=== PATIENT | female | born 2000 | race Two or more races ===

== ENCOUNTER → 2024-10-30 | Outpatient (CLI) | payer BC, SELFPAY ==
[2024-10-30 12:24] LABS: Basophils % (Auto) 0 % (0-2.5); Eosinophils # (Auto) 0.1 Thou/mm3 (0.0-0.5); Eosinophils % (Auto) 1 % (0-10); Hematocrit 43.1 % (36.0-46.0); Immature Granulocytes % (Auto) 0 % (0-0); Immature Granulocytes Auto 0.02 Thou/mm3 (0.00-0.00); Lymphocytes # (Auto) 1.8 Thou/mm3 (1.0-4.8); Lymphocytes % (Auto) 24 % (10-50); Mean Corpuscular HGB Conc 34.8 g/dl (31.0-37.0); Mean Corpuscular Hemoglobin 30.8 pg (25.0-35.0); Mean Corpuscular Volume 89 fL (80-100); Monocytes # (Auto) 0.6 Thou/mm3 (0.0-0.8); Monocytes % (Auto) 8 % (0-12); Neutrophils # (Auto) 5.1 Thou/mm3 (1.8-7.7); Neutrophils % (Auto) 66 % (37-80); Nucleated Red Blood Cell % 0 /100 WBC (0); Platelet Count 306 Thou/mm3 (140-440); RDW Standard Deviation 40.3 fL (36.4-46.3); Red Blood Count 4.87 Miln/mm3 (4.00-5.20); White Blood Count 7.6 Thou/mm3 (3.6-11.0)
[2024-10-30 12:45] LABS: Glucose Estimated Average 100 mg/dL (80-131); Hemoglobin A1C 5.1 % Hgb (4.8-6.0)
[2024-10-30 12:53] LABS: Alanine Aminotransferase 30 U/L (10-49); Albumin, Serum 4.8 gm/dL (3.5-5.0); Albumin/Globulin Ratio 1.8 (1.2-2.2); Alkaline Phosphatase 88 U/L (46-116); Anion Gap 8 (7-16); BUN/Creatinine Ratio 25 Ratio (12-20); Bilirubin,Total 0.7 mg/dL (0.3-1.2); Blood Urea Nitrogen 15 mg/dL (9-23); Calcium 9.5 mg/dL (8.3-10.6); Calcium (Corrected) 9.5 mg/dL (8.5-10.1); Carbon Dioxide 24.5 mMol/L (20.0-31.0); Cardiac Risk Estimate 4.5 RATIO (3.7-5.6); Chloride 106 mMol/L (98-107); Cholesterol 183 mg/dL (132-200); Creatinine (Component) 0.6 mg/dL (0.6-1.3); Globulin 2.6 gm/dL (2.3-3.5); Glucose 86 mg/dL (74-106); HDL Cholesterol 41 mg/dL (40-60); LDL Cholesterol,Calculated 102 mg/dL (0-130); Osmolality,Calculated 275 (275-295); Potassium 3.8 mMol/L (3.4-5.1); Sodium 138 mMol/L (136-145); Total Protein 7.4 gm/dL (5.7-8.2); Triglycerides 201 mg/dL (30-150); eGFR > 60 See Note
[2024-10-30 13:05] LABS: Aspartate Amino Transferase 16 U/L (0-34)
== END | disposition home or self-care (01) ==
PROVIDERS: PCP Student in an Organized Health Care Education/Training Program; Referring Provider Student in an Organized Health Care Education/Training Program; Visit Provider Student in an Organized Health Care Education/Training Program
DX: F33.9 Major depressive disorder, recurrent, unspecified (principal); J30.9 Allergic rhinitis, unspecified; Z83.49 Family history of other endocrine, nutritional and metabolic diseases
CPT/HCPCS: 36415; 80053; 80061; 83036; 84443; 85025

== ENCOUNTER → 2024-11-03 | Outpatient (CLI) | payer BC, SELFPAY ==
[2024-11-03 18:37] LABS: Free T4 (Free Thyroxine) 0.95 ng/dL (0.89-1.76)
[2024-11-10 06:55] LABS: Thyroid Peroxidase Antibodies* 199 IU/mL (<9)
== END | disposition home or self-care (01) ==
LOC: COPL 11:36
PROVIDERS: PCP Family Medicine; Referring Provider Student in an Organized Health Care Education/Training Program; Visit Provider Student in an Organized Health Care Education/Training Program
DX: R94.6 Abnormal results of thyroid function studies (principal)
CPT/HCPCS: 36415; 84439; 86376

== ENCOUNTER → 2025-03-30 | Outpatient (CLI) | payer BC, SELFPAY ==
[2025-03-30 13:59] LABS: Free T4 (Free Thyroxine) 0.63 ng/dL (0.89-1.76); Thyroid Stimulating Hormone > 150.00 uIU/mL (0.55-4.78)
[2025-04-03 06:58] LABS: Thyroid Peroxidase Antibodies* 362 IU/mL (<9)
== END | disposition home or self-care (01) ==
LOC: COPL 12:26
PROVIDERS: PCP Student in an Organized Health Care Education/Training Program; Referring Provider Student in an Organized Health Care Education/Training Program; Visit Provider Student in an Organized Health Care Education/Training Program
DX: E03.9 Hypothyroidism, unspecified (principal)
CPT/HCPCS: 36415; 84439; 84443; 86376

== ENCOUNTER → 2025-04-01 | Outpatient (CLI) | payer BC, SELFPAY ==
[2025-04-01 10:30] LABS: Basophils % (Auto) 0 % (0-2.5); Eosinophils # (Auto) 0.1 Thou/mm3 (0.0-0.5); Eosinophils % (Auto) 1 % (0-10); Hematocrit 36.7 % (36.0-46.0); Hemoglobin 13.1 g/dL (12.0-16.0); Immature Granulocytes % (Auto) 0 % (0-0); Immature Granulocytes Auto 0.02 Thou/mm3 (0.00-0.00); Lymphocytes # (Auto) 0.9 Thou/mm3 (1.0-4.8); Lymphocytes % (Auto) 12 % (10-50); Mean Corpuscular HGB Conc 35.7 g/dl (31.0-37.0); Mean Corpuscular Hemoglobin 31.5 pg (25.0-35.0); Mean Corpuscular Volume 88 fL (80-100); Monocytes # (Auto) 0.6 Thou/mm3 (0.0-0.8); Monocytes % (Auto) 8 % (0-12); Neutrophils # (Auto) 6.3 Thou/mm3 (1.8-7.7); Neutrophils % (Auto) 79 % (37-80); Nucleated Red Blood Cell % 0 /100 WBC (0); Platelet Count 243 Thou/mm3 (140-440); RDW Standard Deviation 42.5 fL (36.4-46.3); Red Blood Count 4.16 Miln/mm3 (4.00-5.20)
[2025-04-01 11:02] LABS: Hepatitis B Surface Antigen Non Reactive (Non React); Rubella, IgG Antibody Reactive (Immune)
[2025-04-01 11:06] LABS: Beta HCG,Quantitative 1921 mIU/mL (<5.0)
[2025-04-01 11:58] LABS: HIV (1&2) Antibody Rapid Non-Reactive
== END | disposition home or self-care (01) ==
LOC: COPL 09:26
PROVIDERS: PCP Family Medicine; Referring Provider Student in an Organized Health Care Education/Training Program; Visit Provider Student in an Organized Health Care Education/Training Program
DX: E03.9 Hypothyroidism, unspecified (principal); Z32.01 Encounter for pregnancy test, result positive
CPT/HCPCS: 36415; 84702; 85025; 86703; 86762; 86850; 86900; 86901; 87340

== ENCOUNTER → 2025-04-06 | Outpatient (CLI) | payer BC, SELFPAY ==
[2025-04-06 11:40] LABS: Free T4 (Free Thyroxine) 1.77 ng/dL (0.89-1.76); Thyroid Stimulating Hormone 13.49 uIU/mL (0.55-4.78)
[2025-04-10 06:09] LABS: T3,Total* 117 ng/dL (76-181)
== END | disposition home or self-care (01) ==
PROVIDERS: PCP Student in an Organized Health Care Education/Training Program; Referring Provider Student in an Organized Health Care Education/Training Program; Visit Provider Student in an Organized Health Care Education/Training Program
DX: E03.9 Hypothyroidism, unspecified (principal)
CPT/HCPCS: 36415; 84439; 84443; 84480

== ENCOUNTER → 2025-04-22 | Outpatient (CLI) | payer BC, SELFPAY ==
[2025-04-22 10:56] LABS: Free T4 (Free Thyroxine) 1.60 ng/dL (0.89-1.76); Thyroid Stimulating Hormone 2.69 uIU/mL (0.55-4.78)
[2025-04-28 06:41] LABS: T3,Total* 96 ng/dL (76-181)
== END | disposition home or self-care (01) ==
LOC: COPL 09:31
PROVIDERS: PCP Family Medicine; Referring Provider Student in an Organized Health Care Education/Training Program; Visit Provider Student in an Organized Health Care Education/Training Program
DX: E03.9 Hypothyroidism, unspecified (principal)
CPT/HCPCS: 36415; 84439; 84443; 84480

== ENCOUNTER 2025-04-23 15:11 | Outpatient (AMB) | payer BC, SELFPAY ==
[2025-04-23 15:36] VITALS: BP 129/81; PULSE 84; RESP 17; TEMP 36.9; O2SAT 98; BMI 44.6
--- NOTE | 2025-04-23 15:36 | AMB.OBINITIA ---
Vital Signs 04/23/25 15:36 Height 1.63 m Height Method Measured Weight 118.047 kg Weight Measurement Method Standing Scale BMI 44.6 BP 129/81 Blood Pressure Source Automatic Cuff Blood Pressure Location Right Upper Arm Position Standing Respiration 17 Pulse 84 Pulse Source Monitor Temp 98.4 F Temp Source Temporal Artery Scan Pulse Oximetry (%) 98 Oxygen Delivery Method Room Air Allergies/Home Meds Allergies & Medications Allergies Penicillins Allergy (Verified 04/23/25 15:37) Medication Reconciliation levonorgestrel-ethinyl estradiol 0.1 mg-20 mcg tablet (Sronyx) 1 tab PO QDAY 03/10/19 [History Confirmed 04/23/25] mv-mn no.97-folic 180 mcg-dha 25 mg-herb no.293 25 mg chewable tablet (Alive Daily Support ) tab PO 04/23/25 [History Confirmed 04/23/25] Intake Visit Data Collection New Patient or Established: New Patient not seen in past 3 years at [facility] (considered New) Reason for Visit:: ZAIRE Consent obtained for Telemed Visit: No Seen by Clinical Staff ONLY (RN/MA): No Carbonator Required: No Do You Feel Safe at Home: Yes Authorities Contacted: N/A PCP or OBGYN visit in last 3 months: No Hx Now: Yes Are you currently on any form of Control: No Last menstrual period: 02/25/25 Pain Present Currently: No Pain Scale Used: Neves-Littlejohn/Numerical Pain scale:: 0 Smoking Status Smoking Status: Never smoker Questionnaires Covid-19 Vaccine Questionnaire Has patient been vacinated for Covid-19 Have you been vacinated for Covid-19: Yes PHQ-9 PHQ-2 Over the last 2 weeks, how often have you been bothered by any of the following problems? 1. Little interest or pleasure in doing things: several days 2. Feeling down, depressed, or hopeless: several days Total score: 2 PHQ-9 3. Trouble falling or staying asleep, or sleeping too much: Several days 4. Feeling tired or having little energy: Several days 5. Poor appetite or overeating: Several days 6. Feeling bad about yourself - or that you are a failure or have let yourself or your family down: Several days 7. Trouble concentrating on things, such as reading the newspaper or watching television: Several days 8. Moving or speaking so slowly that other people could have noticed? - Or the opposite - being so fidgety or restless that you have been moving around a lot more than usual: several days 9. Thoughts that you would be better off or of hurting yourself in some way: Several days Total score: 9.0 If you checked off any problems, how difficult have these problems made it for you to do your work, take care of things at home, or get along with other people?: somewhat difficult Source: Developed by Drs. Gabe Pastor, Aliza Medeiros, Ozzie Noguera and colleagues, with an educational omayra from [employer]. Depression screen completed yes Social History Living Situation History Marital Status: Lives With: Family Housing: House Tobacco History Smoking Status: Never smoker Domestic Abuse History Do You Feel Safe at Home: Yes History of Present Illness HPI Narrative Patient is a 23-year-old [id number] at 8 weeks and 1 day gestation by LMP, presenting for her first visit. Her LMP was on February 25, with an estimated due date of December 02, 2025. This is her first . 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 Her thyroid-stimulating hormone (TSH) levels have been improving, with a significant decrease from an initial level of around 150. Patient reports no other health issues besides her thyroid condition. Patient has not experienced any notable symptoms and denies nausea. She has had no previous ultrasounds or scans related to this , with only a positive test performed at her primary care office. Patient recently acquired an galley cook for her thyroid management but has not yet had an appointment, with the first available slot being in June in [place]. 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 Past Medical History: No Hx Renal Disease, No Hx Diabetes Mellitus Type 1 and No Hx Diabetes Mellitus Type 2 OB Initial Visit Menstrual History Menstrual reliability: definite Flow: heavy Menstrual regularity: irregular Monthly: No Age at menarche: 9 On control pills at conception: No Date of positive home test: 03/28/25 OB History : 1 Para: 0 Hx # Pregnancies: 0 Hx Total # of Abortions (Spontaneous & Elective): 0 # of Living Children: 0 Infection History & Risk Evaluation History of STDs: none HIV risk evaluation: low risk Hepatitis B risk evaluation: low risk Patient or partner has history of Genital Herpes: No Genetic Screening & History Genetic Screening/Teratology Counseling - Includes patient, baby's father, or anyone in either family with: 1. Patient's age 35 years or older as of estimated date of delivery: No 2. Thalassemia (Kinyarwanda, Venezuelan, Mediterranean, or Background); MCV less than 80: No 3. Neural Tube Defect (Meningomyelocele, Spina Bifida, or Anencephaly): No 4. Congenital Heart Defect: No 5. Down Syndrome: No 6. Ramone-Sachs (Ashkenazi Mandaen, Cajun, [place]): No 7. Avtar Disease (Ashkenazi Mandaen): No 8. Familial Dysautonomia (Ashkenazi Mandaen): No 9. Sickle Cell Disease or Trait (): No 10. Hemophilia or other blood disorders: No 11. Muscular Dystrophy: No 13. [place]'s Chorea: No 14. Mental Retardation/Autism: No 15. Other inherited genetic or chromosomal disorder: No 16. Maternal Metabolic Disorder (EG,TYPE 1 Diabetes, PKU): No 17. Patient or baby's father had a child with defects not listed above: No 18. Recurrent loss or a stillbirth: No 19. Medications (including supplements, vitamins, herbs or otc drugs)/illicit/recreational drugs/alcohol since last menstrual period: No 20. Any other: No Infection History 1. Live with someone with TB or exposed to TB: No 2. Rash or viral illness since last menstrual period: No 3. Hepatitis B,C: No Other (see comments) Source: [employer] Exam General General Appearance: alert, in no apparent distress and healthy appearing Head Head exam: atraumatic Neck Neck exam: Present normal inspection and trachea midline Chest Chest inspection: Present normal inspection and symmetric chest wall rise External exam: Present normal external exam; Absent tenderness Neuro Neurological exam: Present oriented X3 Psych Psychiatric exam: Present normal affect and normal mood Office Procedures OB Clinic LOC & Office Proc's Nursing/Assessment Patient Status: Established Patient OB Clinic Nursing Assessment: Medication Reconciliation, Update PMH in EMR and Vital Signs OB Clinic Coordination of Care: Complex Care and Chronic Disease 1-5, 4+ Authorizations needed, Lab and Imaging orders and Staff clarify orders Special Needs: Heart tones Established Patient Charge Established Patient Point Assignment: 135 Established Patient Point Charge: EP Level 4 (120-155) Assessment & Plan Diagnosis / Problem List (1) of unknown anatomic location: Status: Acute (2) Uterine size date discrepancy: Status: Acute Plan Early : - Last menstrual period on February 25, calculates to 8 weeks and 1 day gestation. - Estimated due date of December 02 next year. - First . - Initial bedside ultrasound inconclusive, unable to clearly visualize fetus. - Ordered stat formal ultrasound with radiology to confirm dating and viability. - lab tests to be ordered after ultrasound confirmation. - Genetic screening to be done after 10 weeks gestation. - Follow-up appointment scheduled for early next week to review ultrasound and lab results. Stephany's Thyroiditis: - Patient has history of Stephany's thyroiditis. - Currently taking levothyroxine 200 mg daily. - Recent thyroid function tests show improvement with TSH levels decreasing from initial value of approximately 150 to more normal range. - Continue current levothyroxine dose of 200 mg daily. - Repeat thyroid function tests. - Patient has appointment with new galley cook scheduled for
== END 2025-04-23 15:53 | disposition home or self-care (01) ==
PROVIDERS: PCP Student in an Organized Health Care Education/Training Program; Referring Provider Student in an Organized Health Care Education/Training Program; Supervising Provider Obstetrics & Gynecology; Visit Provider Obstetrics & Gynecology
DX: O36.80X0 Pregnancy with inconclusive fetal viability, not applicable or unspecified (principal); O26.841 Uterine size-date discrepancy, first trimester; Z3A.08 8 weeks gestation of pregnancy; O99.281 Endocrine, nutritional and metabolic diseases complicating pregnancy, first trimester; E06.3 Autoimmune thyroiditis; Z79.890 Hormone replacement therapy; Z88.0 Allergy status to penicillin
CPT/HCPCS: 99214; G0463

== ENCOUNTER → 2025-04-23 | Outpatient (CLI) | payer BC, SELFPAY ==
--- NOTE | 2025-04-23 16:10 | XR_ITS ---
Examination: Complete OB ultrasound, less than 14 weeks, transabdominal Date and time of exam: April 23, 2025, 1617 hours INDICATIONS: Unknown location Technique: Obstetrical ultrasound images less than 14 weeks performed via transabdominal imaging Findings: A normal shaped single intrauterine gestation is present in the uterus. CRL 1.1 cm corresponds to 7 weeks 1 day gestational age Cardiac motion 164 BPM Ultrasonographic survey of visible and placental structures unremarkable. Amniotic fluid volume appears appropriate for this estimated gestational age. Right ovary 4.3 cm arterial flow Left ovary 3.1 cm arterial flow. Impression: Viable intrauterine gestation 7 weeks 1 day
== END | disposition home or self-care (01) ==
LOC: CDIM 16:06
PROVIDERS: Referring Provider Obstetrics & Gynecology; Visit Provider Obstetrics & Gynecology
DX: O36.80X0 Pregnancy with inconclusive fetal viability, not applicable or unspecified (principal); Z3A.01 Less than 8 weeks gestation of pregnancy
CPT/HCPCS: 76801

== ENCOUNTER 2025-05-04 10:48 | Outpatient (AMB) | payer BC, SELFPAY ==
--- NOTE | 2025-05-04 10:59 | AMB.OBVISIT ---
Vital Signs 05/04/25 11:01 Height 1.63 m Height Method Stated Weight 116.12 kg Weight Measurement Method Standing Scale BMI 43.7 BP 123/82 Blood Pressure Source Automatic Cuff Blood Pressure Location Right Upper Arm Position Sitting Respiration 17 Pulse 75 Pulse Source Monitor Temp 98.7 F Temp Source Temporal Artery Scan Pulse Oximetry (%) 98 Oxygen Delivery Method Room Air Allergies/Home Meds Allergies & Medications Allergies Penicillins Allergy (Verified 05/04/25 11:01) Medication Reconciliation mv-mn no.97-folic 180 mcg-dha 25 mg-herb no.293 25 mg chewable tablet (Alive Daily Support ) tab PO 04/23/25 [History Confirmed 05/04/25] doxylamine 10 mg-pyridoxine (vit B6) 10 mg tablet,delayed release (Diclegis) 1 tab PO QDAY 30 days #30 tabs 05/04/25 [Rx] ondansetron 4 mg disintegrating tablet 4 mg PO Q6H PRN nausea and vomiting 30 days #120 tabs 05/04/25 [Rx] Intake Visit Data Collection New Patient or Established: Established Patient (seen at [facility] within 3 years) Reason for Visit:: OBC Seen by Clinical Staff ONLY (RN/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 1. Little interest or pleasure in doing things: several days 2. Feeling down, depressed, or hopeless: not at all Total score: 1 PHQ-9 3. Trouble falling or staying asleep, or sleeping too much: Not at all 4. Feeling tired or having little energy: Not at all 5. Poor appetite or overeating: Not at all 6. Feeling bad about yourself - or that you are a failure or have let yourself or your family down: Not at all 7. Trouble concentrating on things, such as reading the newspaper or watching television: Not at all 8. Moving or speaking so slowly that other people could have noticed? - Or the opposite - being so fidgety or restless that you have been moving around a lot more than usual: not at all 9. Thoughts that you would be better off or of hurting yourself in some way: Not at all Total score: 1 If you checked off any problems, how difficult have these problems made it for you to do your work, take care of things at home, or get along with other people?: not difficult at all Source: Developed by Drs. Gabe Pastor, Aliza Medeiros, Ozzie Noguera and colleagues, with an educational omayra from [employer]. 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 Denies BECK, VC, and epigastric pain. - Ursula is presenting for follow-up from infertility treatment and review of ultrasound results. - She had a positive test in early . - Current gestational age is estimated at 4-5 weeks based on last menstrual period of March 21. - Patient reports experiencing mild cramps, but does not find them concerning. - She denies any vaginal bleeding. - A blood test was performed on May 01 to check hormone levels. - Results showed hormone levels were not high enough to confirm a viable . - Current status is described as miscarriage versus that kind of situation in early . Care OB Visit Log OB Flowsheet Initial Weight: Not Recorded Date <del>?</del> EGA Weight BP Alb Glu CTX Pres Fundal ht FHR Mov Dilation Station Effacement Hx Notes Visit Note 05/04/25 <del>?</del> 8w 5d 116.12 kg 123/82 Sobia Thomas, , 8w5d. No CTX/LOF/VB. Reports nausea. Denies BECK/VC/epigastric pain. FHT 164. Sono 04/23: 7w1d, FHT 164. Plan: labs drawn, NIPT/genetic screening discussed, f/u next week for sono. DEBBI 12/09/25 by sono. DEBBI Calculator Estimated Delivery Date Method Current WG Current Estimate 12/09/25 Ultrasound #1 9w 2d Office Procedures OB Clinic LOC & Office Proc's Nursing/Assessment Patient Status: Established Patient OB Clinic Nursing Assessment: Medication Reconciliation, Update PMH in EMR and Vital Signs OB Clinic Coordination of Care: Complex Care and Chronic Disease 1-5, Consent,records obtained, informed consent, Education Simp Pt/Fam and Staff clarify orders Special Needs: Heart tones Established Patient Charge Established Patient Point Assignment: 115 Established Patient Point Charge: EP Level 3 (80-115) Assessment & Plan Diagnosis / Problem List (1) Uterine size date discrepancy: Status: Acute (2) Supervision of high risk , unspecified, first trimester: Status: Acute (3) Nausea/vomiting in : Status: Acute Plan Problem List - Early - Mild cramping Assessment Early with positive test, estimated 4-5 weeks gestation based on last menstrual period of March 21. HCG level of 991 on May 01, which is considered appropriate for gestational age. Patient reports mild cramping without vaginal bleeding. viability not yet confirmed due to early gestational age. Differential diagnosis includes viable intrauterine versus potential early miscarriage. Plan - Repeat HCG blood test on May 08 - Follow-up appointment scheduled for Sunday of the following week - Continue monitoring for progression of - No additional labs or ultrasound at this time; wait until HCG levels reach approximately 3000 This visit does not meet the criteria for the provided format request. The patient is in early (4-5 weeks gestation) and this is a follow-up visit for infertility treatment and review of ultrasound results. The format request is specifically for visits where gestational age is greater than 20 weeks, which does not apply in this case.
[2025-05-04 11:01] VITALS: BP 123/82; PULSE 75; RESP 17; TEMP 37.1; O2SAT 98; BMI 43.7
== END 2025-05-04 11:26 | disposition home or self-care (01) ==
LOC: HODSOBC 10:48
PROVIDERS: PCP Family Medicine; Referring Provider Family Medicine; Supervising Provider Obstetrics & Gynecology; Visit Provider Obstetrics & Gynecology
DX: O09.891 Supervision of other high risk pregnancies, first trimester (principal); O26.841 Uterine size-date discrepancy, first trimester; O21.9 Vomiting of pregnancy, unspecified; Z3A.08 8 weeks gestation of pregnancy; Z88.0 Allergy status to penicillin
CPT/HCPCS: 99213; G0463

== ENCOUNTER → 2025-05-05 | Outpatient (CLI) | payer BC, SELFPAY ==
[2025-05-05 11:25] LABS: Free T4 (Free Thyroxine) 1.63 ng/dL (0.89-1.76); Thyroid Stimulating Hormone 0.86 uIU/mL (0.55-4.78)
[2025-05-11 08:13] LABS: T3,Total* 148 ng/dL (76-181)
== END | disposition home or self-care (01) ==
LOC: COPL 09:58
PROVIDERS: PCP Student in an Organized Health Care Education/Training Program; Referring Provider Student in an Organized Health Care Education/Training Program; Visit Provider Student in an Organized Health Care Education/Training Program
DX: E03.9 Hypothyroidism, unspecified (principal)
CPT/HCPCS: 36415; 84439; 84443; 84480

== ENCOUNTER → 2025-05-06 | Outpatient (CLI) | payer BC, SELFPAY ==
[2025-05-06 10:54] LABS: Misc Send Out* See Sep Rpt
[2025-05-06 11:21] LABS: Collection Type, Urine Clean Catch
[2025-05-06 11:53] LABS: Thyroid Stimulating Hormone 0.68 uIU/mL (0.55-4.78)
[2025-05-06 12:09] LABS: Amorphous Crystals,Urine Present (Absent); Bacteria,Urine Rare; Bilirubin,Urine Negative (Negative); Blood,Urine Negative (Negative); Color,Urine Lt-Yellow (Lt Yel-Yel); Culture Indicated,Urine Not Indicated; Glucose, Urine Negative (Negative); Ketones,Urine Negative (Negative); Leukocyte Esterase,Urine Positive (Negative); Nitrite,Urine Negative (Negative); PH,Urine 8.0 (5.0-7.0); Protein,Urine Negative (Neg - Trace); RBC,Urine 2 /hpf (0-3); Specific Gravity,Urine 1.014 (1.001-1.035); Squamous Epithelial Cell,Urine 18 /hpf (0-5); Urobilinogen,Urine Negative mg/dL (0.0-1.0); WBC,Urine 5 /hpf (0-5)
[2025-05-06 12:16] LABS: Syphilis Nonreactive (Nonreactive)
[2025-05-06 12:19] LABS: Clarity,Urine Hazy (Clear/Hazy)
[2025-05-06 12:28] LABS: Basophils # (Auto) 0.0 Thou/mm3 (0.0-0.2); Basophils % (Auto) 0 % (0-2.5); Eosinophils # (Auto) 0.1 Thou/mm3 (0.0-0.5); Eosinophils % (Auto) 1 % (0-10); Hematocrit 39.3 % (36.0-46.0); Hemoglobin 13.6 g/dL (12.0-16.0); Immature Granulocytes Auto 0.02 Thou/mm3 (0.00-0.00); Lymphocytes # (Auto) 1.4 Thou/mm3 (1.0-4.8); Lymphocytes % (Auto) 18 % (10-50); Mean Corpuscular HGB Conc 34.6 g/dl (31.0-37.0); Mean Corpuscular Hemoglobin 31.8 pg (25.0-35.0); Mean Corpuscular Volume 92 fL (80-100); Monocytes # (Auto) 0.5 Thou/mm3 (0.0-0.8); Monocytes % (Auto) 6 % (0-12); Neutrophils # (Auto) 6.0 Thou/mm3 (1.8-7.7); Neutrophils % (Auto) 75 % (37-80); Nucleated Red Blood Cell # 0.00 Thou/mm3 (0.00-0.00); Nucleated Red Blood Cell % 0 /100 WBC (0); Platelet Count 259 Thou/mm3 (140-440); RDW Standard Deviation 43.3 fL (36.4-46.3); Red Blood Count 4.28 Miln/mm3 (4.00-5.20); White Blood Count 8.0 Thou/mm3 (3.6-11.0)
[2025-05-06 12:30] LABS: Hepatitis B Surface Ab Reactive (Immune) (Immune); Hepatitis C Antibody Non Reactive (Non React)
[2025-05-07 18:24] LABS: Chlamydia trachomatis PCR Negative (Not Detect); Neisseria Gonorrhoeae DNA PCR Negative (Not Detect); Trichomonas Negative (Negative)
== END | disposition home or self-care (01) ==
LOC: COPL 10:27
PROVIDERS: PCP Family Medicine; Referring Provider Obstetrics & Gynecology; Visit Provider Obstetrics & Gynecology
DX: Z34.90 Encounter for supervision of normal pregnancy, unspecified, unspecified trimester (principal)
CPT/HCPCS: 36415; 81001; 81220; 84443; 85025; 86706; 86780; 86803; 86850; 86900; 86901; 87491; 87591; 87661

== ENCOUNTER → 2025-05-19 | Outpatient (CLI) | payer BC, SELFPAY ==
[2025-05-19 11:47] LABS: Free T4 (Free Thyroxine) 1.74 ng/dL (0.89-1.76); Thyroid Stimulating Hormone 0.52 uIU/mL (0.55-4.78)
== END | disposition home or self-care (01) ==
LOC: COPL 09:56
PROVIDERS: PCP Student in an Organized Health Care Education/Training Program; Referring Provider Student in an Organized Health Care Education/Training Program; Visit Provider Student in an Organized Health Care Education/Training Program
DX: E03.9 Hypothyroidism, unspecified (principal)
CPT/HCPCS: 36415; 84439; 84443

== ENCOUNTER 2025-05-25 10:11 | Outpatient (AMB) | payer BC, SELFPAY ==
[2025-05-25 10:17] VITALS: BP 120/83; PULSE 81; RESP 17; TEMP 36.8; O2SAT 98; BMI 42.9
--- NOTE | 2025-05-25 10:17 | OBCLNT_ITS ---
Vital Signs 05/25/25 10:17 Height 1.63 m Height Method Stated Weight 113.965 kg Weight Measurement Method Standing Scale BMI 42.9 BP 120/83 Blood Pressure Source Automatic Cuff Blood Pressure Location Right Upper Arm Position Sitting Respiration 17 Pulse 81 Pulse Source Monitor Temp 98.3 F Temp Source Temporal Artery Scan Pulse Oximetry (%) 98 Oxygen Delivery Method Room Air Allergies/Home Meds Allergies & Medications Allergies Penicillins Allergy (Verified 05/25/25 10:18) Medication Reconciliation mv-mn no.97-folic 180 mcg-dha 25 mg-herb no.293 25 mg chewable tablet (Alive Daily Support ) tab PO 04/23/25 [History Confirmed 05/25/25] doxylamine 10 mg-pyridoxine (vit B6) 10 mg tablet,delayed release (Diclegis) 1 tab PO QDAY 30 days #30 tabs 05/04/25 [Rx Confirmed 05/25/25] ondansetron 4 mg disintegrating tablet 4 mg PO Q6H PRN nausea and vomiting 30 days #120 tabs 05/04/25 [Rx Confirmed 05/25/25] Intake Visit Data Collection New Patient or Established: Established Patient (seen at [facility] within 3 years) Reason for Visit:: OBC Seen by Clinical Staff ONLY (RN/MA): 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 1. Little interest or pleasure in doing things: several days 2. Feeling down, depressed, or hopeless: not at all Total score: 1 PHQ-9 3. Trouble falling or staying asleep, or sleeping too much: Not at all 4. Feeling tired or having little energy: Not at all 5. Poor appetite or overeating: Not at all 6. Feeling bad about yourself - or that you are a failure or have let yourself or your family down: Not at all 7. Trouble concentrating on things, such as reading the newspaper or watching television: Not at all 8. Moving or speaking so slowly that other people could have noticed? - Or the opposite - being so fidgety or restless that you have been moving around a lot more than usual: not at all 9. Thoughts that you would be better off or of hurting yourself in some way: Not at all Total score: 1 If you checked off any problems, how difficult have these problems made it for you to do your work, take care of things at home, or get along with other people?: not difficult at all Source: Developed by Drs. Gabe Pastor, Aliza Medeiros, Ozzie Noguera and colleagues, with an educational omayra from [employer]. 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 No CTX/LOF/VB. Reports nausea. Denies BECK/VC/epigastric pain. FHT 164. Paul 04/23: 7w1d, FHT 164. Plan: labs drawn, NIPT/genetic screening discussed, f/u next week for paul. DEBBI 12/09/25 by paul. 05/25/25 -?-?-?-?-?-?-?-?-?-?-?-?- 11w 5d 113.965 kg 120/83 175 - Patient was last seen at 8 weeks and 5 days gestation. - She denies any current cramping or spo tting. - Nausea is still present, primarily in the morning. - Prescribed medication helps alleviat e symptoms. - Nausea is exacerbated by need to jonathan e thyroxine on an empty stomach. - Patient reports having to go on leave from work ([employer]) due to lack of accommodations. - Inquiring about possibility of disability leave. - Continue vitamins and nausea medications - Patient can take nausea medication tog ether with thyroxine - Follow-up appointment in 6 weeks - Ultrasound for anatomy survey at 18-20 weeks, patient will receive call from [facility] - Genetic testing to be provided today - Labs to be done at [facility] or [facility] (p ending insurance check) - Short-term disability forms to be fill ed out for work accommodation (4-6 weeks) - Patient to obtain disability forms fro DEBBI office and return for completion DEBBI Calculator Estimated Delivery Date Method Current WG Current Estimate 12/09/25 Ultrasound #1 18w 4d Office Procedures OB Clinic LOC & Office Proc's Nursing/Assessment Patient Status: Established Patient OB Clinic Nursing Assessment: Medication Reconciliation, Update PMH in EMR and Vital Signs OB Clinic Coordination of Care: Complex Care and Chronic Disease 1-5, Consent,records obtained, informed consent, Education Simp Pt/Fam and Staff clarify orders Special Needs: Heart tones Established Patient Charge Established Patient Point Assignment: 115 Established Patient Point Charge: EP Level 3 (80-115) Assessment & Plan Diagnosis / Problem List (1) Supervision of high risk , unspecified, first trimester: Status: Acute (2) Nausea/vomiting in : Status: Acute Plan Problem List - , first trimester - Nausea of - Hypothyroidism Assessment at 11 weeks and 5 days gestation presenting for routine visit. Patient reports ongoing morning nausea, managed with prescribed medication. heart rate auscultated at 165 bpm, within normal range. Ultrasound examination revealed normal development for gestational age. All laborat ory results reviewed and noted to be within normal limits. Patient's thyroid condition is being managed with thyroxine. Patient inquired about disability options due to work accommodation issues at [employer]. Plan - Continue vitamins and nausea medications - Patient can take nausea medication together with thyroxine - Follow-up appointment in 6 weeks - Ultrasound for anatomy survey at 18-20 weeks, patient will receive call from [facility] - Genetic testing to be provided today - Labs to be done at [facility] or [facility] (pending insurance check) - Short-term disability forms to be filled out for work accommodation (4-6 weeks) - Patient to obtain disability forms from DEBBI office and return for completion This visit does not meet the criteria for the provided format request. The patient is at 11 weeks and 5 days gestation, which is less than 20 weeks, and this is not an initial visit. Therefore, the given format is not applicable to this specific visit.
== END 2025-05-25 11:51 | disposition home or self-care (01) ==
LOC: HODSOBC 10:11
PROVIDERS: PCP Student in an Organized Health Care Education/Training Program; Referring Provider Student in an Organized Health Care Education/Training Program; Supervising Provider Obstetrics & Gynecology; Visit Provider Obstetrics & Gynecology
DX: O09.891 Supervision of other high risk pregnancies, first trimester (principal); O21.9 Vomiting of pregnancy, unspecified; O99.281 Endocrine, nutritional and metabolic diseases complicating pregnancy, first trimester; E03.9 Hypothyroidism, unspecified; Z3A.11 11 weeks gestation of pregnancy; Z79.890 Hormone replacement therapy; Z88.0 Allergy status to penicillin
CPT/HCPCS: 99213; G0463

== ENCOUNTER → 2025-06-02 | Outpatient (CLI) | payer BC, SELFPAY ==
[2025-06-02 17:04] LABS: Free T4 (Free Thyroxine) 1.52 ng/dL (0.89-1.76); Thyroid Stimulating Hormone 0.48 uIU/mL (0.55-4.78)
== END | disposition home or self-care (01) ==
LOC: COPL 15:06
PROVIDERS: PCP Student in an Organized Health Care Education/Training Program; Referring Provider Student in an Organized Health Care Education/Training Program; Visit Provider Student in an Organized Health Care Education/Training Program
DX: E03.9 Hypothyroidism, unspecified (principal)
CPT/HCPCS: 36415; 84439; 84443

== ENCOUNTER → 2025-07-01 | Outpatient (CLI) | payer BC, SELFPAY ==
[2025-07-01 13:40] LABS: Free T4 (Free Thyroxine) 1.29 ng/dL (0.89-1.76); Thyroid Stimulating Hormone 1.59 uIU/mL (0.55-4.78)
== END | disposition home or self-care (01) ==
LOC: COPL 11:57
PROVIDERS: PCP Family Medicine; Referring Provider Student in an Organized Health Care Education/Training Program; Visit Provider Student in an Organized Health Care Education/Training Program
DX: E03.9 Hypothyroidism, unspecified (principal)
CPT/HCPCS: 36415; 84439; 84443

== ENCOUNTER 2025-07-14 09:26 | Outpatient (AMB) | payer BC, SELFPAY ==
[2025-07-14 09:49] VITALS: BP 131/78; PULSE 98; RESP 18; TEMP 37.1; O2SAT 95; BMI 43.2
--- NOTE | 2025-07-14 09:49 | OBCLNT_ITS ---
Vital Signs 07/14/25 09:49 Height 1.63 m Height Method Measured Weight 114.986 kg Weight Measurement Method Standing Scale BMI 43.2 BP 131/78 H Blood Pressure Source Automatic Cuff Blood Pressure Location Right Upper Arm Position Sitting Respiration 18 Pulse 98 Pulse Source Monitor Temp 98.8 F Temp Source Temporal Artery Scan Pulse Oximetry (%) 95 Oxygen Delivery Method Room Air Allergies/Home Meds Allergies & Medications Allergies Penicillins Allergy (Verified 05/25/25 10:18) Intake Visit Data Collection New Patient or Established: Established Patient (seen at [facility] within 3 years) Reason for Visit:: OBC FOLLOW UP Do You Feel Safe at Home: Yes Authorities Contacted: N/A PCP or OBGYN visit in last 3 months: Yes Date of Last PCP or OBGYN visit: 05/25/25 Hx Now: Yes Are you currently on any form of Control: No Pain Present Currently: No Smoking Status Smoking Status: Never smoker Questionnaires PHQ-9 PHQ-2 Over the last 2 weeks, how often have you been bothered by any of the following problems? 1. Little interest or pleasure in doing things: several days PHQ-9 8. Moving or speaking so slowly that other people could have noticed? - Or the opposite - being so fidgety or restless that you have been moving around a lot more than usual: not at all Source: Developed by Drs. Gabe Pastor, Aliza Medeiros, Ozzie Noguera and colleagues, with an educational omayra from [employer]. 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 No CTX/LOF/VB. Reports nausea. Denies BECK/VC/epigastric pain. FHT 164. Paul 04/23: 7w1d, FHT 164. Plan: labs drawn, NIPT/genetic screening discussed, f/u next week for paul. DEBBI 12/09/25 by paul. 05/25/25 -?-?-?-?-?-?-?-?-?-?-?-?- 11w 5d 113.965 kg 120/83 175 - Patient was last seen at 8 weeks and 5 days gestation. - She denies any current cramping or spo tting. - Nausea is still present, primarily in the morning. - Prescribed medication helps alleviat e symptoms. - Nausea is exacerbated by need to jonathan e thyroxine on an empty stomach. - Patient reports having to go on leave from work ([employer]) due to lack of accommodations. - Inquiring about possibility of disability leave. - Continue vitamins and nausea medications - Patient can take nausea medication tog ether with thyroxine - Follow-up appointment in 6 weeks - Ultrasound for anatomy survey at 18-20 weeks, patient will receive call from [facility] - Genetic testing to be provided today - Labs to be done at [facility] or [facility] (p ending insurance check) - Short-term disability forms to be fill ed out for work accommodation (4-6 weeks) - Patient to obtain disability forms [facility] office and return for completion 07/14/25 -?-?-?-?-?-?-?-?-?-?-?-?- 18w 6d 114.986 kg 131/78 absent cephalic 19 16 1 - Patient reports ongoing nausea - Taking prescribed medication for david sea - Previously given short-term disabili ty due to severe nausea - Denies cramping - Reports acne flare-up - Currently taking thyroid medication - Denies drinking, smoking, or other soc ial habits - Denies intimate partner violence - Patient and partner are happy about the - Continue current thyroid medication - Repeat thyroid panel at 24 weeks with glucose test - Prescribed cream for acne, to be used at night - Recommended flu and COVID-19 vaccines anytime - Tdap vaccine to be given at 28 weeks - RSV vaccine recommended, available sta august - Follow-up appointment scheduled in 4 w eeks (22 weeks gestation) - High-resolution ultrasound referral se nt to [facility] for detailed anatomy survey - Next appointment to include orders for thyroid panel and glucose test DEBBI Calculator Estimated Delivery Date Method Current WG Current Estimate 12/09/25 Ultrasound #1 18w 6d Assessment & Plan Diagnosis / Problem List (1) Nausea/vomiting in : Status: Acute (2) Uterine size date discrepancy: Status: Acute Plan Problem List - , first trimester - Hyperemesis gravidarum - Hypothyroidism - Acne - Nausea Assessment at 18 weeks 6 days gestation presenting for routine visit. Patient reports ongoing nausea requiring medication and short-term disability. Genetic screening for trisomies, including Down syndrome, is negative. sex is male. Patient experiencing acne flare-up. Thyroid status being monitored, currently on thyroid medication. Normal heart rate of 161 bpm detected. Patient inquired about vaccine timing and safety, including flu, COVID-19, Tdap, and RSV vaccines during and period. Patient also expressed concern about thyroid medication compatibility with . Plan - Continue current thyroid medication - Repeat thyroid panel at 24 weeks with glucose test - Prescribed cream for acne, to be used at night - Recommended flu and COVID-19 vaccines anytime - Tdap vaccine to be given at 28 weeks - RSV vaccine recommended, available starting August - Follow-up appointment scheduled in 4 weeks (22 weeks gestation) - High-resolution ultrasound referral sent to [facility] for detailed anatomy survey - Next appointment to include orders for thyroid panel and glucose test
== END 2025-07-14 10:21 | disposition home or self-care (01) ==
LOC: HODSOBC 09:26
PROVIDERS: PCP Family Medicine; Referring Provider Family Medicine; Supervising Provider Obstetrics & Gynecology; Visit Provider Obstetrics & Gynecology
DX: O09.892 Supervision of other high risk pregnancies, second trimester (principal); O26.842 Uterine size-date discrepancy, second trimester; O21.0 Mild hyperemesis gravidarum; O99.282 Endocrine, nutritional and metabolic diseases complicating pregnancy, second trimester; E03.9 Hypothyroidism, unspecified; O99.712 Diseases of the skin and subcutaneous tissue complicating pregnancy, second trimester; Z3A.18 18 weeks gestation of pregnancy; L70.9 Acne, unspecified; Z88.0 Allergy status to penicillin
CPT/HCPCS: 99214; G0463

== ENCOUNTER → 2025-07-24 | Outpatient (CLI) | payer BC, SELFPAY ==
[2025-07-24 10:40] LABS: Basophils # (Auto) 0.0 Thou/mm3 (0.0-0.2); Basophils % (Auto) 0 % (0-2.5); Eosinophils # (Auto) 0.1 Thou/mm3 (0.0-0.5); Eosinophils % (Auto) 1 % (0-10); Hematocrit 37.9 % (36.0-46.0); Hemoglobin 13.0 g/dL (12.0-16.0); Immature Granulocytes Auto 0.05 Thou/mm3 (0.00-0.00); Lymphocytes # (Auto) 1.5 Thou/mm3 (1.0-4.8); Lymphocytes % (Auto) 14 % (10-50); Mean Corpuscular HGB Conc 34.3 g/dl (31.0-37.0); Mean Corpuscular Hemoglobin 31.9 pg (25.0-35.0); Mean Corpuscular Volume 93 fL (80-100); Monocytes # (Auto) 0.7 Thou/mm3 (0.0-0.8); Monocytes % (Auto) 6 % (0-12); Neutrophils # (Auto) 8.2 Thou/mm3 (1.8-7.7); Neutrophils % (Auto) 78 % (37-80); Nucleated Red Blood Cell # 0.00 Thou/mm3 (0.00-0.00); Nucleated Red Blood Cell % 0 /100 WBC (0); Platelet Count 242 Thou/mm3 (140-440); RDW Standard Deviation 43.0 fL (36.4-46.3); Red Blood Count 4.08 Miln/mm3 (4.00-5.20); White Blood Count 10.5 Thou/mm3 (3.6-11.0)
[2025-07-24 11:03] LABS: Alanine Aminotransferase 51 U/L (10-49); Albumin, Serum 4.0 gm/dL (3.5-5.0); Albumin/Globulin Ratio 1.8 (1.2-2.2); Alkaline Phosphatase 81 U/L (46-116); Anion Gap 11 (7-16); Aspartate Amino Transferase 22 U/L (0-34); BUN/Creatinine Ratio 12 Ratio (12-20); Bilirubin,Total 0.4 mg/dL (0.3-1.2); Blood Urea Nitrogen 6 mg/dL (9-23); Calcium 9.0 mg/dL (8.3-10.6); Calcium (Corrected) 9.0 mg/dL (8.5-10.1); Carbon Dioxide 22.2 mMol/L (20.0-31.0); Cardiac Risk Estimate 3.3 RATIO (3.7-5.6); Chloride 106 mMol/L (98-107); Cholesterol 210 mg/dL (132-200); Creatinine (Component) 0.5 mg/dL (0.6-1.3); Free T3 3.1 pg/mL (2.3-4.2); Free T4 (Free Thyroxine) 1.24 ng/dL (0.89-1.76); Globulin 2.2 gm/dL (2.3-3.5); Glucose 98 mg/dL (74-106); HDL Cholesterol 64 mg/dL (40-60); LDL Cholesterol,Calculated 110 mg/dL (0-130); Osmolality,Calculated 275 (275-295); Potassium 3.7 mMol/L (3.4-5.1); Sodium 139 mMol/L (136-145); Thyroid Stimulating Hormone 2.27 uIU/mL (0.55-4.78); Total Protein 6.2 gm/dL (5.7-8.2); Triglycerides 181 mg/dL (30-150); eGFR > 60 See Note
[2025-07-24 11:19] LABS: Folate > 24.00 ng/mL (>5.38); Vitamin B12 234 pg/mL (211-911); Vitamin D 25 Hydroxy Total 22.1 ng/mL (7.3-40.2)
[2025-07-31 06:57] LABS: TSI, Thyroid Stimulating Ig* <89 % baseline (<140); Thyroid Peroxidase Antibodies* 69 IU/mL (<9); Zinc, Plasma* 73 mcg/dL (60-130)
== END | disposition home or self-care (01) ==
LOC: COPL 09:44
PROVIDERS: PCP Family Medicine; Referring Provider Internal Medicine Endocrinology, Diabetes & Metabolism; Visit Provider Internal Medicine Endocrinology, Diabetes & Metabolism
DX: Z34.92 Encounter for supervision of normal pregnancy, unspecified, second trimester (principal); E03.9 Hypothyroidism, unspecified
CPT/HCPCS: 36415; 80053; 80061; 82306; 82607; 82746; 84439; 84443; 84445; 84481; 84630; 85025; 86376

== ENCOUNTER 2025-08-11 09:22 | Outpatient (AMB) | payer BC, SELFPAY ==
[2025-08-11 09:34] VITALS: BP 127/83; PULSE 89; RESP 17; TEMP 36.8; O2SAT 97; BMI 44.1
--- NOTE | 2025-08-11 09:34 | OBCLNT_ITS ---
Vital Signs 08/11/25 09:34 Height 1.63 m Height Method Stated Weight 117.254 kg Weight Measurement Method Standing Scale BMI 44.1 BP 127/83 Blood Pressure Source Automatic Cuff Blood Pressure Location Right Upper Arm Position Sitting Respiration 17 Pulse 89 Pulse Source Monitor Temp 98.2 F Temp Source Temporal Artery Scan Pulse Oximetry (%) 97 Oxygen Delivery Method Room Air Allergies/Home Meds Allergies & Medications Allergies Penicillins Allergy (Verified 09/06/25 13:53) Hives Medication Reconciliation mv-mn no.97-folic 180 mcg-dha 25 mg-herb no.293 25 mg chewable tablet (Alive Daily Support ) 1 tab PO DAILY 04/23/25 [History Confirmed 09/06/25] ondansetron 4 mg disintegrating tablet 4 mg PO Q6H PRN nausea and vomiting 30 days #120 tabs 05/04/25 [Rx Confirmed 09/06/25] levothyroxine 200 mcg tablet 200 mcg PO DAILY 09/06/25 [History Confirmed 09/06/25] Intake Visit Data Collection New Patient or Established: Established Patient (seen at [facility] within 3 years) Reason for Visit:: OBC 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 by Clinical Staff 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 Do You Feel Safe at Home: Yes Authorities Contacted: N/A PCP or OBGYN visit in last 3 months: Yes Date of Last PCP or OBGYN visit: 07/14/25 Hx Now: Yes Are you currently on any form of Control: No Pain Present Currently: No Pain Scale Used: Neves-Littlejohn/Numerical Pain scale:: 0 Smoking Status Smoking Status: Never smoker Immunizations Flu Vaccine in the Last 12 Months: No Questionnaires Covid-19 Vaccine Questionnaire Has patient been vacinated for Covid-19 Have you been vacinated for Covid-19: No PHQ-9 PHQ-2 Over the last 2 weeks, how often have you been bothered by any of the following problems? 1. Little interest or pleasure in doing things: not at all 2. Feeling down, depressed, or hopeless: not at all Total score: 0 PHQ-9 3. Trouble falling or staying asleep, or sleeping too much: Not at all 4. Feeling tired or having little energy: Not at all 5. Poor appetite or overeating: Not at all 6. Feeling bad about yourself - or that you are a failure or have let yourself or your family down: Not at all 7. Trouble concentrating on things, such as reading the newspaper or watching television: Not at all 8. Moving or speaking so slowly that other people could have noticed? - Or the opposite - being so fidgety or restless that you have been moving around a lot more than usual: not at all 9. Thoughts that you would be better off or of hurting yourself in some way: Not at all Total score: 0 If you checked off any problems, how difficult have these problems made it for you to do your work, take care of things at home, or get along with other people?: not difficult at all Source: Developed by Drs. Gabe Pastor, Aliza Medeiros, Ozzie Noguera and colleagues, with an educational omayra from [employer]. 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 No CTX/LOF/VB. Reports nausea. Denies BECK/VC/epigastric pain. FHT 164. Paul 04/23: 7w1d, FHT 164. Plan: labs drawn, NIPT/genetic screening discussed, f/u next week for paul. DEBBI 12/09/25 by paul. 05/25/25 -?-?-?-?-?-?-?-?-?-?-?-?- 11w 5d 113.965 kg 120/83 175 - Patient was last seen at 8 weeks and 5 days gestation. - She denies any current cramping or spo tting. - Nausea is still present, primarily in the morning. - Prescribed medication helps alleviat e symptoms. - Nausea is exacerbated by need to jonathan e thyroxine on an empty stomach. - Patient reports having to go on leave from work ([employer]) due to lack of accommodations. - Inquiring about possibility of disability leave. - Continue vitamins and nausea medications - Patient can take nausea medication tog ether with thyroxine - Follow-up appointment in 6 weeks - Ultrasound for anatomy survey at 18-20 weeks, patient will receive call from [facility] - Genetic testing to be provided today - Labs to be done at [facility] or [facility] (p ending insurance check) - Short-term disability forms to be fill ed out for work accommodation (4-6 weeks) - Patient to obtain disability forms fro DEBBI office and return for completion 07/14/25 -?-?-?-?-?-?-?-?-?-?-?-?- 18w 6d 114.986 kg 131/78 absent cephalic 19 16 1 - Patient reports ongoing nausea - Taking prescribed medication for david sea - Previously given short-term disabili ty due to severe nausea - Denies cramping - Reports acne flare-up - Currently taking thyroid medication - Denies drinking, smoking, or other soc ial habits - Denies intimate partner violence - Patient and partner are happy about the - Continue current thyroid medication - Repeat thyroid panel at 24 weeks with glucose test - Prescribed cream for acne, to be used at night - Recommended flu and COVID-19 vaccines anytime - Tdap vaccine to be given at 28 weeks - RSV vaccine recommended, available sta rting August - Follow-up appointment scheduled in 4 w eeks (22 weeks gestation) - High-resolution ultrasound referral se nt to [facility] for detailed anatomy survey - Next appointment to include orders for thyroid panel and glucose test 08/11/25 -?-?-?-?-?-?-?-?-?-?-?-?- 22w 6d 117.254 kg 127/83 absent unknown 23 155 active - She has a history of hyperemesis with ongoing nausea. - Was on disability leave due to hyper emesis. - She had an endocrinology appointment june for her thyroid condition. - She has not yet received a call from [facility] ([facility]) for specialist ultrasound despite referral being sent. - Follow up in 4 weeks - One-hour glucose test to be completed within the next 3-4 weeks - [facility] specialist referral has been resub mitted and is under review; patient will be contacted by specialist office DEBBI Calculator Estimated Delivery Date Method Current WG Current Estimate 12/09/25 Ultrasound #1 27w 0d Notes Visit Date: 08/11/25 Last Updated by: Shiv Armenta MD Laboratory, Imaging, and Diagnostic Test Results - Date: 07/24/2025 - TSH: 2.27 - Free T4: 1.24 - Thyroid antibodies: within normal range - Vitamin B12: low Office Procedures OBC Clinic LOC & Office Proc's Nursing/Assessment Patient Status: Established Patient OB Clinic Nursing Assessment: Medication Reconciliation, Update PMH in EMR and Vital Signs OB Clinic Coordination of Care: Complex Care and Chronic Disease 1-5, Education Complex Pt/Fam, Consent,records obtained, informed consent, Lab and Imaging orders and Staff clarify orders Special Needs: Heart tones Established Patient Charge Established Patient Point Assignment: 135 Established Patient Point Charge: EP Level 4 (120-155) Assessment & Plan Diagnosis / Problem List (1) Nausea/vomiting in : Status: Acute (2) Uterine size date discrepancy: Status: Acute
== END 2025-08-11 10:21 | disposition home or self-care (01) ==
LOC: HODSOBC 09:22
PROVIDERS: Supervising Provider Obstetrics & Gynecology; Visit Provider Obstetrics & Gynecology
DX: O09.892 Supervision of other high risk pregnancies, second trimester (principal); O26.842 Uterine size-date discrepancy, second trimester; O21.9 Vomiting of pregnancy, unspecified; Z3A.22 22 weeks gestation of pregnancy; Z88.0 Allergy status to penicillin
CPT/HCPCS: 99214; G0463

== ENCOUNTER → 2025-08-31 | Outpatient (CLI) | payer BC, SELFPAY ==
[2025-08-31 14:03] LABS: Free T3 2.8 pg/mL (2.3-4.2); Free T4 (Free Thyroxine) 1.25 ng/dL (0.89-1.76); Thyroid Stimulating Hormone 2.02 uIU/mL (0.55-4.78)
== END | disposition home or self-care (01) ==
LOC: COPL 12:51
PROVIDERS: PCP Family Medicine; Referring Provider Internal Medicine Endocrinology, Diabetes & Metabolism; Visit Provider Internal Medicine Endocrinology, Diabetes & Metabolism
DX: Z34.92 Encounter for supervision of normal pregnancy, unspecified, second trimester (principal); E03.9 Hypothyroidism, unspecified
CPT/HCPCS: 36415; 84439; 84443; 84481

== ENCOUNTER 2025-09-06 13:28 | Observation (INO) | payer BC, SELFPAY ==
[2025-09-06] VITALS (11 sets, daily range): BP systolic 125; BP diastolic 71; PULSE 82–99; RESP 19–96; TEMP 37; O2SAT 94–97; BMI 45.3
== END 2025-09-06 14:33 | disposition home or self-care (01) ==
PROVIDERS: Admitting Provider Obstetrics & Gynecology; Visit Provider Obstetrics & Gynecology
DX: O36.8120 Decreased fetal movements, second trimester, not applicable or unspecified (principal); Z3A.26 26 weeks gestation of pregnancy
CPT/HCPCS: 59025; 59899

== ENCOUNTER → 2025-09-15 | Outpatient (CLI) | payer BC, SELFPAY ==
[2025-09-15 14:36] LABS: Glucose,1 Hour PP 50gm Dose 150 mg/dL (80-140)
== END | disposition home or self-care (01) ==
LOC: COPL 11:06
PROVIDERS: PCP Family Medicine; Referring Provider Obstetrics & Gynecology; Visit Provider Obstetrics & Gynecology
DX: Z34.92 Encounter for supervision of normal pregnancy, unspecified, second trimester (principal)
CPT/HCPCS: 36415; 82950

== ENCOUNTER 2025-09-22 10:49 | Outpatient (AMB) | payer BC, SELFPAY ==
[2025-09-22 11:15] VITALS: BP 126/84; PULSE 108; RESP 20; TEMP 36.9; O2SAT 97; BMI 45.5
--- NOTE | 2025-09-22 11:15 | AMB.OBPNC ---
Vital Signs 09/22/25 11:15 Height 1.63 m Height Method Stated Weight 120.259 kg Weight Measurement Method Standing Scale BMI 45.5 BP 126/84 Blood Pressure Source Automatic Cuff Blood Pressure Location Left Upper Arm Position Sitting Respiration 20 Pulse 108 H Pulse Source Monitor Temp 98.4 F Temp Source Oral Pulse Oximetry (%) 97 Oxygen Delivery Method Room Air Allergies/Home Meds Allergies & Medications Allergies Penicillins Allergy (Verified 09/22/25 11:16) Hives Medication Reconciliation mv-mn no.97-folic 180 mcg-dha 25 mg-herb no.293 25 mg chewable tablet (Alive Daily Support ) 1 tab PO DAILY 04/23/25 [History Confirmed 09/22/25] ondansetron 4 mg disintegrating tablet 4 mg PO Q6H PRN nausea and vomiting 30 days #120 tabs 05/04/25 [Rx Confirmed 09/22/25] levothyroxine 200 mcg tablet 200 mcg PO DAILY 09/06/25 [History Confirmed 09/22/25] Immunizations Immunizations Flu Vaccine in the Last 12 Months: Yes Date of most recent flu vaccination: 09/22/25 Flu Vaccine Exclusion Criteria: Already Received Care OB Visit Log OB Flowsheet Initial Weight: Not Recorded Date <del>?</del> EGA Weight BP Alb Glu CTX Pres Fundal ht FHR Mov Dilation Station Effacement Hx Notes Visit Note 05/04/25 <del>?</del> 8w 5d 116.12 kg 123/82 Sobia Thomas, , 8w5d. No CTX/LOF/VB. Reports nausea. Denies BECK/VC/epigastric pain. FHT 164. Williso 04/23: 7w1d, FHT 164. Plan: labs drawn, NIPT/genetic screening discussed, f/u next week for w[place]. DEBBI 12/09/25 by wilton. 05/25/25 <del>?</del> 11w 5d 113.965 kg 120/83 175 - Patient was last seen at 8 weeks and 5 days gestation. - She denies any current cramping or spotting. - Nausea is still present, primarily in the morning. - Prescribed medication helps alleviate symptoms. - Nausea is exacerbated by need to take thyroxine on an empty stomach. - Patient reports having to go on leave from work ([employer]) due to lack of accommodations. - Inquiring about possibility of disability leave. - Continue vitamins and nausea medications - Patient can take nausea medication together with thyroxine - Follow-up appointment in 6 weeks - Ultrasound for anatomy survey at 18-20 weeks, patient will receive call from [facility] - Genetic testing to be provided today - Labs to be done at [facility] or [facility] (pending insurance check) - Short-term disability forms to be filled out for work accommodation (4-6 weeks) - Patient to obtain disability forms from DEBBI office and return for completion 07/14/25 <del>?</del> 18w 6d 114.986 kg 131/78 absent cephalic 19 161 - Patient reports ongoing nausea - Taking prescribed medication for nausea - Previously given short-term disability due to severe nausea - Denies cramping - Reports acne flare-up - Currently taking thyroid medication - Denies drinking, smoking, or other social habits - Denies intimate partner violence - Patient and partner are happy about the - Continue current thyroid medication - Repeat thyroid panel at 24 weeks with glucose test - Prescribed cream for acne, to be used at night - Recommended flu and COVID-19 vaccines anytime - Tdap vaccine to be given at 28 weeks - RSV vaccine recommended, available starting August - Follow-up appointment scheduled in 4 weeks (22 weeks gestation) - High-resolution ultrasound referral sent to [facility] for detailed anatomy survey - Next appointment to include orders for thyroid panel and glucose test 08/11/25 <del>?</del> 22w 6d 117.254 kg 127/83 absent unknown 23 155 active - She has a history of hyperemesis with ongoing nausea. - Was on disability leave due to hyperemesis. - She had an endocrinology appointment in June for her thyroid condition. - She has not yet received a call from [facility] ([facility]) for specialist ultrasound despite referral being sent. - Follow up in 4 weeks - One-hour glucose test to be completed within the next 3-4 weeks - [facility] specialist referral has been resubmitted and is under review; patient will be contacted by specialist office DEBBI Calculator Estimated Delivery Date Method Current WG Current Estimate 12/09/25 Ultrasound #1 28w 6d Notes Visit Date: 08/11/25 Last Updated by: Shiv Armenta MD Laboratory, Imaging, and Diagnostic Test Results - Date: 07/24/2025 - TSH: 2.27 - Free T4: 1.24 - Thyroid antibodies: within normal range - Vitamin B12: low Office Procedures OBC Clinic LOC & Office Proc's Nursing/Assessment Patient Status: Established Patient OB Clinic Nursing Assessment: Medication Reconciliation, Update PMH in EMR and Vital Signs OB Clinic Coordination of Care: Complex Care and Chronic Disease 1-5, Consent,records obtained, informed consent, Education Simp Pt/Fam, 1 Ins Authorization, Lab and Imaging orders, Results/Orders obtained and Staff clarify orders Special Needs: Heart tones Established Patient Charge Established Patient Point Assignment: 150 Established Patient Point Charge: EP Level 4 (120-155) Injection/Vaccine Admin SQ Im Injection: Yes Immunizations flu vac ts 2024-(6mos up)-PF 45 mcg(15mcg x3)/0.5 mL IM syringe Performing Provider: Shiv Armenta MD Performing Location: [facility] Administered by: Patricia Borja MA on 09/22/25 11:41 Dose Route Admin Location Dispensed Lot Number Expiration Date Package [facility] Ict Analyst 0.5 mL IM Left Deltoid 0.5 mL [id number] 04/20/26 [id number] [id number] VIS Given Date VIS Provided VIS Publication Date 09/22/25 Single Vaccine 24 Eligibility Eligibility Date Funding Source Public [facility] diphth,pertus(acell),tetanus 2.5 Lf unit-8 mcg-5 Lf/0.5mL IM syringe Performing Provider: Shiv Armenta MD Performing Location: [facility] Administered by: Patricia Borja MA on 09/22/25 11:41 Dose Route Admin Location Dispensed Lot Number Expiration Date Package [facility] [place] Ict Analyst 0.5 mL IM Left Deltoid 0.5 mL [id number] 01/16/28 [id number] VIS Given Date VIS Provided VIS Publication Date 09/22/25 Single Vaccine 24 Eligibility Eligibility Date [facility] Assessment & Plan Diagnosis / Problem List (1) Supervision of high risk , unspecified, third trimester: Status: Acute
== END 2025-09-22 11:19 | disposition home or self-care (01) ==
LOC: HODSOBC 10:49
PROVIDERS: Supervising Provider Obstetrics & Gynecology; Visit Provider Obstetrics & Gynecology
DX: O09.93 Supervision of high risk pregnancy, unspecified, third trimester (principal); Z3A.28 28 weeks gestation of pregnancy; Z23 Encounter for immunization; Z88.0 Allergy status to penicillin
CPT/HCPCS: 90471; 90686; 90715; 96372; 99214; G0463; J9060

== ENCOUNTER → 2025-09-25 | Outpatient (CLI) | payer BC, SELFPAY ==
[2025-09-25 14:00] LABS: Free T3 3.0 pg/mL (2.3-4.2); Free T4 (Free Thyroxine) 1.35 ng/dL (0.89-1.76); Thyroid Stimulating Hormone 1.88 uIU/mL (0.55-4.78)
== END | disposition home or self-care (01) ==
PROVIDERS: PCP Family Medicine; Referring Provider Internal Medicine Endocrinology, Diabetes & Metabolism; Visit Provider Internal Medicine Endocrinology, Diabetes & Metabolism
DX: Z34.92 Encounter for supervision of normal pregnancy, unspecified, second trimester (principal); E03.9 Hypothyroidism, unspecified
CPT/HCPCS: 36415; 84439; 84443; 84481

== ENCOUNTER 2025-10-09 08:51 | Outpatient (AMB) | payer BC, SELFPAY ==
[2025-10-09 08:59] VITALS: BP 137/85; PULSE 95; RESP 18; TEMP 36.9; O2SAT 96; BMI 45.1
--- NOTE | 2025-10-09 08:59 | OBCLNT_ITS ---
Vital Signs 10/09/25 08:59 Height 1.63 m Height Method Stated Weight 119.805 kg Weight Measurement Method Standing Scale BMI 45.1 BP 137/85 H Blood Pressure Source Automatic Cuff Blood Pressure Location Right Upper Arm Position Sitting Respiration 18 Pulse 95 Pulse Source Monitor Temp 98.5 F Temp Source Temporal Artery Scan Pulse Oximetry (%) 96 Oxygen Delivery Method Room Air Allergies/Home Meds Allergies & Medications Allergies Penicillins Allergy (Verified 10/09/25 09:01) Hives Medication Reconciliation mv-mn no.97-folic 180 mcg-dha 25 mg-herb no.293 25 mg chewable tablet (Alive Daily Support ) 1 tab PO DAILY 04/23/25 [History Confirmed 10/09/25] ondansetron 4 mg disintegrating tablet 4 mg PO Q6H PRN nausea and vomiting 30 days #120 tabs 05/04/25 [Rx Confirmed 10/09/25] levothyroxine 200 mcg tablet 200 mcg PO DAILY 09/06/25 [History Confirmed 10/09/25] Intake Visit Data Collection New Patient or Established: Established Patient (seen at [facility] within 3 years) Reason for Visit:: OBC Seen by Clinical Staff ONLY (RN/MA): No Screening Specialist Required: No Do You Feel Safe at Home: Yes Authorities Contacted: N/A PCP or OBGYN visit in last 3 months: Yes Hx Now: Yes Are you currently on any form of Control: No Pain Present Currently: No Pain Scale Used: Neves-Littlejohn/Numerical Pain scale:: 0 Smoking Status Smoking Status: Never smoker Immunizations Flu Vaccine in the Last 12 Months: No Flu Vaccine Exclusion Criteria: Refused by Patient Questionnaires PHQ-9 PHQ-2 Over the last 2 weeks, how often have you been bothered by any of the following problems? 1. Little interest or pleasure in doing things: not at all PHQ-9 8. Moving or speaking so slowly that other people could have noticed? - Or the opposite - being so fidgety or restless that you have been moving around a lot more than usual: not at all Source: Developed by Drs. Gabe Pastor, Aliza Medeiros, Ozzie Noguera and colleagues, with an educational omayra from [employer]. 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 No CTX/LOF/VB. Reports nausea. Denies BECK/VC/epigastric pain. FHT 164. Paul 04/23: 7w1d, FHT 164. Plan: labs drawn, NIPT/genetic screening discussed, f/u next week for paul. DEBBI 12/09/25 by paul. 05/25/25 -?-?-?-?-?-?-?-?-?-?-?-?- 11w 5d 113.965 kg 120/83 175 - Patient was last seen at 8 weeks and 5 days gestation. - She denies any current cramping or spo tting. - Nausea is still present, primarily in the morning. - Prescribed medication helps alleviat e symptoms. - Nausea is exacerbated by need to jonathan e thyroxine on an empty stomach. - Patient reports having to go on leave from work ([employer]) due to lack of accommodations. - Inquiring about possibility of disability leave. - Continue vitamins and nausea medications - Patient can take nausea medication tog ether with thyroxine - Follow-up appointment in 6 weeks - Ultrasound for anatomy survey at 18-20 weeks, patient will receive call from [employer] - Genetic testing to be provided today - Labs to be done at [facility] or [facility] (p ending insurance check) - Short-term disability forms to be fill ed out for work accommodation (4-6 weeks) - Patient to obtain disability forms fro DEBBI office and return for completion 07/14/25 -?-?-?-?-?-?-?-?-?-?-?-?- 18w 6d 114.986 kg 131/78 absent cephalic 19 16 1 - Patient reports ongoing nausea - Taking prescribed medication for david sea - Previously given short-term disabili ty due to severe nausea - Denies cramping - Reports acne flare-up - Currently taking thyroid medication - Denies drinking, smoking, or other soc ial habits - Denies intimate partner violence - Patient and partner are happy about the - Continue current thyroid medication - Repeat thyroid panel at 24 weeks with glucose test - Prescribed cream for acne, to be used at night - Recommended flu and COVID-19 vaccines anytime - Tdap vaccine to be given at 28 weeks - RSV vaccine recommended, available sta rtaugust - Follow-up appointment scheduled in 4 w eeks (22 weeks gestation) - High-resolution ultrasound referral se nt to [facility] for detailed anatomy survey - Next appointment to include orders for thyroid panel and glucose test 08/11/25 -?-?-?-?-?-?-?-?-?-?-?-?- 22w 6d 117.254 kg 127/83 absent unknown 23 155 active - She has a history of hyperemesis with ongoing nausea. - Was on disability leave due to hyper emesis. - She had an endocrinology appointment i june for her thyroid condition. - She has not yet received a call from [facility] ([facility]) for specialist ultrasound despite referral being sent. - Follow up in 4 weeks - One-hour glucose test to be completed within the next 3-4 weeks - MFM specialist referral has been resub mitted and is under review; patient will be contacted by specialist office 09/22/25 -?-?-?-?-?-?-?-?-?-?-?-?- 28w 6d 120.259 kg 126/84 absent unknown 29 157 active - She reports feeling okay overall with no significant concerns. - She is adherent to her thyroid medicat ion regimen. - She denies contractions or cramping. - She reports worsening acne, which she attributes to cold and dry weather conditions. - She recently received flu shot and Tdap vaccination. - Continue thyroid medication - Use steam treatments for facial acne a nd antiseptic face wash ([id number]) - Get RSV vaccine today (same day as flu and Tdap vaccines already received) - monitoring at [facility] starting at 32 weeks (hospital will call for appointments) - Ultrasound scheduled around 32 weeks i n September - Follow up in 2 weeks - Follow up again after ultrasound 10/09/25 -?-?-?-?-?-?-?-?-?-?-?-?- 31w 2d 119.805 kg 137/85 absent cephalic 32 16 0 active - She reports that her baby is active with no contractions or other issues. - Her hyperemesis has resolved since las t visit. 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 - Reports that her thyroid labs were f ine at last endocrinology visit. - She experiences hip pain but assumes t his is normal for . - She denies any labor or contra ctions. - She inquired about needing Rh immunogl obulin injection, confirming she is Rh- negative. - She reports having already received the Tdap vaccine earlier in [place]. - RhoGAM injection to be administered today (patient is Rh-negative at 31+2 weeks) - Weekly testing starting this week due to thyroid condition - labor and delivery will call to schedule appointments - Third trimester routine laboratory tina ting: CBC and RPR ordered - Continue levothyroxine 200mg (endocrin ologist monitoring thyroid labs) - Follow-up appointment in 3-4 weeks Office Procedures OBC Clinic LOC & Office Proc's Nursing/Assessment Patient Status: Established Patient OB Clinic Nursing Assessment: Medication Reconciliation, Update PMH in EMR and Vital Signs OB Clinic Coordination of Care: Complex Care and Chronic Disease 1-5, Education Complex Pt/Fam, Consent,records obtained, informed consent, Lab and Imaging orders, Results/Orders obtained and Staff clarify orders Special Needs: Heart tones Established Patient Charge Established Patient Point Assignment: 140 Established Patient Point Charge: EP Level 4 (120-155) Office Meds Rhophylac 1,500 unit (300 mcg)/2 mL injection syringe Performing Provider: Shiv Armenta MD Performing Location: [facility] Administered by: Marsha Rosario MA on 10/09/25 10:24 Dose Route Admin Location Dispensed Lot Number Expiration Date Pack age [facility] Local Telephone Operator 1,500 unit IM RIGHT GLUTE 2 mL [id number] 08/05/27 [id number] [facility] Assessment & Plan Diagnosis / Problem List (1) Rh negative state in antepartum period: Status: Acute (2) Supervision of high risk , unspecified, third trimester: Status: Acute (3) Stephany thyroiditis: Status: Acute Plan Problem List - Stephany's thyroiditis - at 31 weeks 2 days gestation - Rh negative blood type Assessment 31-week 2-day patient with history of Stephany's thyroiditis on levothyroxine 200 mcg with resolved hyperemesis gravidarum. Patient reports active movement with no contractions or labor symptoms. Hip pain is present, consistent with normal -related musculoskeletal changes. Patient is Rh-negative requiring RhoGAM administration. Thyroid condition is being monitored by book solicitor with recent labs reported as normal. Due for routine third trimester laboratory testing. Plan - RhoGAM injection to be administered today (patient is Rh-negative at 31+2 weeks) - Weekly testing starting this week due to thyroid condition - labor and delivery will call to schedule appointments - Third trimester routine laboratory testing: CBC and RPR ordered - Continue levothyroxine 200mg (book solicitor monitoring thyroid labs) - Follow-up appointment in 3-4 weeks 1. Progress Reviewed gestational age at 31 weeks and 2 days, growth, and heart rate. Planned frequent visits with weekly testing due to thyroid condition and follow-up in 3 weeks. 2. Instructed patient to monitor movements and report decreases immediately. 3. Testing Counseled on routine third-trimester labs per guidelines. Discussed weekly testing ( heart rate monitoring) due to thyroid condition starting this week. 4. Preeclampsia Precaution Educated on preeclampsia signs: severe headache, vision changes, right upper quadrant pain, sudden swelling. Advised urgent reporting of symptoms and discussed blood pressure monitoring if high risk. 5. Labor Precautions Reviewed labor signs: regular contractions, pelvic pressure, back pain, bleeding, or fluid leakage. Instructed to seek immediate care for these symptoms. 6. Lifestyle and Delivery Preparation Reinforced vitamins, nutrition, and safe activity. Discussed plan, pain management, and . Advised on labor preparation (e.g., hospital bag) and expectations. 7. Psychosocial Support Assessed emotional well-being and offered resources for mental health or parenting support.
== END 2025-10-09 09:45 | disposition home or self-care (01) ==
LOC: HODSOBC 08:51
PROVIDERS: Supervising Provider Obstetrics & Gynecology; Visit Provider Obstetrics & Gynecology
DX: O09.893 Supervision of other high risk pregnancies, third trimester (principal); O99.283 Endocrine, nutritional and metabolic diseases complicating pregnancy, third trimester; E06.3 Autoimmune thyroiditis; O26.893 Other specified pregnancy related conditions, third trimester; Z67.91 Unspecified blood type, Rh negative; Z88.0 Allergy status to penicillin
CPT/HCPCS: 96372; 99214; J3490; G0463; J2791

== ENCOUNTER 2025-10-21 10:12 | Observation (INO) | payer BC, SELFPAY ==
[2025-10-21 10:21] VITALS: BP 131/82; PULSE 95; RESP 17; TEMP 37.2; BMI 33.3
[2025-10-21] MEDS: RINGERS LACTATED 1000 ML 1,000 ML 999 ML IV (10:30)
[2025-10-21] MEDS: RINGERS LACTATED 1000 ML 1,000 ML 100 ML IV (11:10)
[2025-10-21 11:21] LABS: Basophils # (Auto) 0.0 Thou/mm3 (0.0-0.2); Basophils % (Auto) 0 % (0-2.5); Eosinophils # (Auto) 0.0 Thou/mm3 (0.0-0.5); Eosinophils % (Auto) 0 % (0-10); Hematocrit 34.9 % (36.0-46.0); Hemoglobin 12.0 g/dL (12.0-16.0); Immature Granulocytes Auto 0.07 Thou/mm3 (0.00-0.00); Lymphocytes # (Auto) 1.2 Thou/mm3 (1.0-4.8); Lymphocytes % (Auto) 11 % (10-50); Mean Corpuscular HGB Conc 34.4 g/dl (31.0-37.0); Mean Corpuscular Hemoglobin 31.7 pg (25.0-35.0); Mean Corpuscular Volume 92 fL (80-100); Monocytes # (Auto) 0.7 Thou/mm3 (0.0-0.8); Monocytes % (Auto) 6 % (0-12); Neutrophils # (Auto) 9.3 Thou/mm3 (1.8-7.7); Neutrophils % (Auto) 82 % (37-80); Nucleated Red Blood Cell # 0.00 Thou/mm3 (0.00-0.00); Nucleated Red Blood Cell % 0 /100 WBC (0); Platelet Count 244 Thou/mm3 (140-440); RDW Standard Deviation 43.4 fL (36.4-46.3); Red Blood Count 3.79 Miln/mm3 (4.00-5.20); White Blood Count 11.3 Thou/mm3 (3.6-11.0)
[2025-10-21 11:52] LABS: Syphilis Nonreactive (Nonreactive)
--- NOTE | 2025-10-21 12:54 | PD.LDANTE ---
Documentation for date of: 10/21/25 OB Labor/Induct. HPI History of Present Illness Chief complaint: routine antepartum testing : 1 Para: 0 Term pregnancies: 0 pregnancies: 0 Living children: 0 History of Abortions: Spontaneous and Elective: 0 History of Vaginal deliveries: 0 History of sections: No History of : No DEBBI: 12/08/25 Gestational Age (weeks): 33 Gestational Age (days): 1 History of present illness: Sobia is a 25yo with SIUP at 33w1d presenting for routine antepartum testing indicated for hx of Stephany's thyroiditis with resultant hypothyroidism. She has normal movement. No ctx/lof/vb. History of Present Dating criteria: based on 1st trimester US only Adequate Care: Yes Narrative: Rh negative, received rhogam 10/09 Hx of Stephany's thyroiditis with resultant hypothyroidism, taking levothryroxine 200mcg QD Current BMI 33.3 Labs Maternal Blood Type: O Neg Review of Systems Review of Systems Narrative Review of Systems: Review of Systems Systems Reviewed: All systems reviewed, normal except as documented Constitutional Constitutional: Denies body ache(s), Denies chills, Denies fever(s) and Denies headache(s) ENT Ears, Nose, Mouth, and Throat: Denies headache(s) and Denies vertigo Cardiovascular Cardiovascular: Denies chest pain, Denies palpitations, Denies dyspnea and Denies syncope Respiratory Respiratory: Denies cough, Denies dyspnea Gastrointestinal Gastrointestinal: Denies nausea and Denies vomiting Neurologic Neurologic: Denies convulsions, Denies headache(s), Denies other visual disturbances, Denies syncope and Denies vertigo Past Medical History Surgical History SURGICAL: Negative Section Social History SOCIAL: No tobacco/ETOH/illicit drug use. , good support. Past Medical History Comments PMH COMMENT: Current BMI 33.3 Hx of Stephany's thyroiditis with resultant hypothyroidism, taking levothryroxine 200mcg QD Meds Home Medications and Allergies Home Medications ?Medication ?Instructions ?Recorded ?Confirmed ?Type mv-mn no.97-folic 180 mcg-dha 25 1 tab PO DAILY 04/23/25 10/21/25 History mg-herb no.293 25 mg chewable tablet (Alive Daily Support ) levothyroxine 200 mcg tablet 200 mcg PO DAILY 09/06/25 10/21/25 History Allergies Allergy/AdvReac Type Severity Reaction Status Date / Time Penicillins Allergy Hives Verified 10/21/25 10:43 OB Exam Physical Exam Vital signs: Temp Pulse Resp BP O2 Del Method 98.9 F 95 17 131/82 H Room Air 10/21/25 10:21 10/21/25 10:21 10/21/25 10:21 10/21/25 10:21 10/21/25 10:21 Narrative: General: well developed, well nourished, no acute distress, conversant Cardiac: normal heart rate Lungs: breathing without distress Abdomen: soft, gravid, non-tender, no rebound or guarding Extremities: no edema BLE Detailed Labor and Delivery Exam Membranes: intact monitor accelerations: 15x15 monitor decelerations: None alf variability: Moderate (11-25) OB Results Labs 10/21/25 10:30 Labs: Short CBC 10/21/25 Range/Units 10:30 WBC 11.3 H (3.6-11.0) Thou/mm3 Hgb 12.0 (12.0-16.0) g/dL Hct 34.9 L (36.0-46.0) % Plt Count 244 (140-440) Thou/mm3 Impressions Impression: Ordering Physician: Shiv Armenta MD Date of Service: 10/21/25 Procedure(s): US OB biophysical profile Accession Number(s): [id number] cc: Con Cyr MD; Shiv Armenta MD; Marifer Mccollum MD~ Examination: Biophysical profile, ultrasound Date and time of exam: October 21, 2025, 0911 hours INDICATIONS: Diagnosis high risk , diagnosis Stephany's thyroiditis Technique: Multiple transabdominal sonographic images of the pelvis abdomen obtained. Attention is directed to the breathing movement, gross body movement, amniotic fluid volume and tone. Findings: Amniotic fluid index 4.4 cm Total biophysical profile is 6 of 8. breathing movement is 2. Gross body movement is 2. tone is 2. Qualitative amniotic fluid volume is 0 Impression: Biophysical profile is 6 of 8. OB Assessment & Plan Assessment and Plan (1) Oligohydramnios in third trimester: Status: Acute Assessment and plan: Sobia is a 25yo with SIUP at 33&1wk with oligohydramnios noted on routine antepartum testing. ADEEL 4.4cm giving BPP 6/8. No OB complaints. Vitals wnl, benign exam. Cat I FHRT. PMhx/ significant for: -Hx of Stephany's thyroiditis with resultant hypothyroidism, taking levothyroxine 200mcg PO QD -Current BMI 33.3 -Rh negative, received rhogam 10/09 -Care with Dr. Armenta Plan: -Admit to L&D for antepartum observation -Establish IV, routine labs -IV and oral hydration -CEFM -regular diet -continue levothyroxine 200mcg PO QD and PNV -Re-eval ADEEL after 12hr of hydration (2) Stephany thyroiditis: Status: Acute (3) Rh negative state in antepartum period: Status: Acute (4) Supervision of high risk , unspecified, third trimester: Status: Acute (1) Oligohydramnios in third trimester Qualifiers: Fetus number: single or unspecified fetus Qualified Code(s): O41.03X0 - Oligohydramnios, third trimester, not applicable or unspecified
--- NOTE | 2025-10-21 13:20 | XR_ITS ---
age Limited TECHNIQUE: Limited transabdominal sonographic images pelvis INDICATIONS: Low amniotic fluid 4.4 cm on ultrasound examination today FINDINGS: Amniotic fluid index 6.1 cm Cardiac motion 143 bpm IMPRESSION: Amniotic fluid index 6.1 cm
[2025-10-21 17:23] VITALS: BP 127/75; PULSE 90
[2025-10-21 19:56] VITALS: BP 131/75; PULSE 96
[2025-10-21 19:57] VITALS: RESP 17; TEMP 36.6
--- NOTE | 2025-10-22 02:53 | PD.LDANT ---
Planned Discharge Date 10/22/25 Antepartum Hosp Course Hospital Course : 1 Para: 0 Term pregnancies: 0 pregnancies: 0 Living children: 0 History of Abortions: Spontaneous and Elective: 0 History of Vaginal deliveries: 0 History of sections: No History of : No DEBBI: 12/08/25 Visit History: Sobia is a 25yo with SIUP at 33w1d presenting for routine antepartum testing indicated for hx of Stephany's thyroiditis with resultant hypothyroidism. She has normal movement. No ctx/lof/vb. History of Present Dating criteria: based on 1st trimester US only Adequate Care: Yes Additional Discharge comments Sobia is a 25yo with SIUP at 33w1d found to have oligohydramnios ADEEL 4.4cm during routine antepartum testing appt which is indicated for hx of Stephany's thyroiditis with resultant hypothyroidism. She was kept during the day for IV and oral hydration after which ADEEL was repeated and noted to be normal at 6.1cm (MVP 3.78cm). She has normal movement, no ctx/lof/vaginal bleeding. She has normal vitals, benign exam. Reassuring maternal and status. She was instructed to return for repeat antepartum testing on October 26 and to continue good hydration. Return precautions provided. Discharge Plan Plan Patient Disposition: HOME (Self Care) Patient condition on transfer: Stable Prescriptions/Referrals Prescriptions/Med Rec: Continued Alive Daily Support 180 mcg-25 mg- 25 mg tablet,chewable 1 tab PO DAILY levothyroxine 200 mcg tablet 200 mcg PO DAILY Patient Comments: TAKE 1 TABLET BY MOUTH EVERY DAY IN THE MORNING ON EMPTY STOMACH Referrals: Karo Morin MD [Primary Care Provider, [employer]PERATIONS SUPERINTENDENT] Patient/Caregiver Discharge Instructions Discharge Activity: activity as tolerated Other Discharge Diet Instructions: regular Education Materials: Oligohydramnios, Kick Counts, Understanding Labor, Antepartum Discharge Print Language: Irish Activity Restrictions/Additional Instructions: Come to triage on SundayOctober 26 for NST and check ADEEL. follow up with your obgyn within 1 week, call to schedule appointment Stand Alone Forms: Ashley Award Info., Patient Portal Info Letter Discharge Order Discharge Orders: Discharge (Routine); Ordered 10/21/25 Ordered By: Karo D Mikel Providers Provider Date of admission: 10/21/25 10:12 Primary care physician: Karo Morin MD Admitting Provider: Karo Morin MD Attending Provider on Admission: Karo Morin MD Attending Provider on DC: Karo Morin MD Discharging Provider: Karo Morin MD Diagnosis Discharge Diagnosis (1) Oligohydramnios in third trimester: Status: Acute Qualifiers: Fetus number: single or unspecified fetus Qualified Code(s): O41.03X0 - Oligohydramnios, third trimester, not applicable or unspecified (2) Stephany thyroiditis: Status: Acute (3) Rh negative state in antepartum period: Status: Acute (4) Supervision of high risk , unspecified, third trimester: Status: Acute
== END 2025-10-21 20:54 | disposition home or self-care (01) ==
PROVIDERS: Admitting Provider Obstetrics & Gynecology; PCP Obstetrics & Gynecology; Visit Provider Obstetrics & Gynecology
DX: O41.03X0 Oligohydramnios, third trimester, not applicable or unspecified (principal); E06.3 Autoimmune thyroiditis; O99.283 Endocrine, nutritional and metabolic diseases complicating pregnancy, third trimester; Z3A.33 33 weeks gestation of pregnancy; Z79.890 Hormone replacement therapy; O26.893 Other specified pregnancy related conditions, third trimester; Z67.91 Unspecified blood type, Rh negative; O09.93 Supervision of high risk pregnancy, unspecified, third trimester
CPT/HCPCS: 36415; 59025; 59899; 76815; 85025; 86780; 86850; 86870; 86900; 86901; J7120